=== PATIENT | female | born 1995 | race American Indian/Alaskan Native ===

== ENCOUNTER 2021-12-12 14:03 | Emergency (ER) | payer SELFPAY ==
[~2021-12-12] VITALS: Ht 165.1 cm; Wt 96.0 kg
[2021-12-12 14:31] VITALS: BP 126/76
[2021-12-12 16:27] LABS: BASOPHILS % 0.3 % (0.0-2.0); EOSINOPHILS % 0.9 % (0.0-5.0); HEMATOCRIT. 41.1 % (36.0-48.0); HEMOGLOBIN. 13.4 g/dL (12.0-16.0); LYMPHOCYTES % 22.2 % (20.0-50.0); MEAN CORPUSCULAR VOLUME 89.2 fL (81.0-99.0); MONOCYTES % 6.1 % (2.0-8.0); NEUTROPHILS % 70.5 % (40.0-76.0); PLATELET 365 x1000/uL (130-400); RED BLOOD CELL COUNT 4.61 mill/uL (4.2-5.4); RED CELL DISTRIBUTION WIDTH 14.3 % (11.6-14.6)
[2021-12-12 16:31] LABS: CHLORIDE 109 mEq/L (98-107)
[2021-12-12 16:59] LABS: B-HCG QUANTITATIVE 2224 mIU/mL (<3)
[2021-12-12 18:10] LABS: CLARITY URINE CLEAR (CLEAR); COLOR URINE RED (YELLOW); KETONES URINE NEGATIVE (NEGATIVE); LEUKOCYTE ESTERASE URINE 2+ (NEGATIVE); NITRITE URINE POSITIVE (NEGATIVE); OCCULT BLOOD URINE 3+ (NEGATIVE); PH URINE 7.5 (4.5-8.0); PROTEIN URINE 3+ (NEGATIVE); SPECIFIC GRAVITY URINE 1.004 (1.005-1.030); UROBILINOGEN URINE 0.2 E.U./dL (0.2-1.0)
[2021-12-12] MEDS ORDERED: NITR-87 MT (18:12)
== END 2021-12-12 18:46 | disposition home or self-care (01) ==
LOC: ER 14:03
DX: O20.0 Threatened abortion (principal); O23.41 Unspecified infection of urinary tract in pregnancy, first trimester; N39.0 Urinary tract infection, site not specified; Z3A.01 Less than 8 weeks gestation of pregnancy
CPT/HCPCS: 36415; 76801; 80053; 81003; 81025; 84702; 85025; 86850; 86900; 99284